=== PATIENT | male | born 1955 | race Caucasian/White ===

== ENCOUNTER → 2017-08-19 | Outpatient (CLI) | payer OTHER | END | disposition home or self-care (01) | LOC: RAD 10:54 | DX: H40.213 Acute angle-closure glaucoma, bilateral (principal) | CPT/HCPCS: 66761 ==

== ENCOUNTER 2017-10-19 07:08 | Day surgery (SDC) | payer OTHER ==
[2017-10-19] MEDS ORDERED: TIMOLOL 0.5% 5 ML OPH (07:50)
[2017-10-19] MEDS ORDERED: LIDOCAINE 1% (MPF) 10 ML INJ (07:50)
[2017-10-19] MEDS ORDERED: BUPIVACAINE 0.75% (MPF) 10 ML INJ (07:50)
[2017-10-19] MEDS ORDERED: EPINEPHrine 1 MG INJ (07:51)
[2017-10-19] MEDS ORDERED: LIDOCAINE 2% (SDV) 5 ML INJ (07:51)
[2017-10-19] MEDS: MOXIFLOXACIN 0.5% 3 ML OPH LEFT EYE (08:09)
[2017-10-19] MEDS: CYCLOPENTOLATE 2% 2 ML OPH LEFT EYE (08:09)
[2017-10-19] MEDS: PHENYLephrine 10% 5 ML OPH LEFT EYE (08:10)
[2017-10-19] MEDS: NEPAFENAC 0.1% 3 ML OPH LEFT EYE (08:10)
[2017-10-19] MEDS ORDERED: PROPOFOL 20 ML (08:58)
[2017-10-19] MEDS ORDERED: FENTAnyl 50 MCG/ML VIAL (08:58)
[2017-10-19] MEDS ORDERED: ONDANSETRON 4 MG INJ (09:04)
[2017-10-19] MEDS: TIMOLOL 0.5% 5 ML OPH LEFT EYE (09:23)
[2017-10-19] MEDS ORDERED: FENTAnyl 50 MCG/ML VIAL IV (10:00)
[2017-10-19] MEDS ORDERED: ONDANSETRON 4 MG INJ IV (10:00)
[2017-10-19] MEDS ORDERED: KETOROLAC 30 MG INJ IV (10:00)
== END 2017-10-19 11:30 | disposition home or self-care (01) ==
LOC: SDS 07:08
DX: H25.11 Age-related nuclear cataract, right eye (principal)
CPT/HCPCS: 66984

== ENCOUNTER 2018-05-12 10:34 | Day surgery (SDC) | payer OTHER ==
[~2018-05-12 10:34] MED LIST: EPHEDrine SULFATE 50 MG/5 ML SYG; GLYCOPYRROLATE 0.4 MG INJ
[2018-05-12] MEDS: PHENYLephrine 10% 5 ML OPH OPER (11:16)
[2018-05-12] MEDS: MOXIFLOXACIN 0.5% 3 ML OPH OPER ×2 (11:16→12:17)
[2018-05-12] MEDS: CYCLOPENTOLATE 2% 2 ML OPH OPER (11:16)
[2018-05-12] MEDS: NEPAFENAC 0.1% 3 ML OPH OPER (11:16)
[2018-05-12] MEDS: LACTATED RINGER'S 1,000 ML IV (11:19)
[2018-05-12] MEDS ORDERED: PROPOFOL 20 ML (11:49)
[2018-05-12] MEDS ORDERED: MIDAZOLAM 1 MG/ML 2 ML INJ (11:49)
[2018-05-12] MEDS ORDERED: FENTAnyl 50 MCG/ML VIAL (11:49)
[2018-05-12] MEDS ORDERED: SODIUM HYALURONATE 14 MG/ML SYG (11:58)
[2018-05-12] MEDS: EPINEPHrine 1 MG INJ (12:16)
[2018-05-12] MEDS: LIDOCAINE 1% (MPF) 10 ML INJ (12:17)
[2018-05-12] MEDS ORDERED: DEXAMETHASONE 4 MG/ML 1 ML INJ (12:17)
[2018-05-12] MEDS ORDERED: ONDANSETRON 4 MG INJ (12:17)
[2018-05-12] MEDS ORDERED: METOCLOPRAMIDE 10 MG INJ (12:17)
[2018-05-12] MEDS: TIMOLOL 0.5% 5 ML OPH RIGHT EYE (12:18)
== END 2018-05-12 14:21 | disposition home or self-care (01) ==
LOC: SDS 10:34
DX: H25.11 Age-related nuclear cataract, right eye (principal)
CPT/HCPCS: 66984